=== PATIENT | female | born 1960 | race Caucasian/White ===

== ENCOUNTER → 2016-10-23 | Outpatient (CLI) | payer BC ==
[2016-10-23 14:06] VITALS: BP 145/78; PULSE 81; RESP 16; TEMP 98.4; BMI 29.5
--- NOTE | 2016-10-23 15:06 | P.HPBAR ---
Bariatric H&P - History & Physicial H&P Date: 10/23/16 History & Physicial: Visit/CC: band adj Patient initial contact: Initial weight: 80.314 kg Initial weight in pounds: 177.00 Height: 5 ft 5 in Initial BMI: 29.5 Last weight: Current weight: 80.314 kg Current weight in pounds: 177.00 Current BMI: 29.5 [place] body weight (based on NIH guidelines): 56.699 kg Excess body weight loss: 0.0% The patient is a 55 year-old F who presents for Bariatric Assessment. The patient is requesting a fill of her LAP-BAND. She currently feels hungry. Past Medical History Past Medical History: GERD/Reflux, Hypertension, Musculoskeletal Disorder Additional Past Medical History / Comment(s): MULTIPLE SCLEROSIS History of Any Multi-Drug Resistant Organisms: None Reported Past Surgical History: Section, Hysterectomy, Tonsillectomy Additional Past Surgical History / Comment(s): BILATERAL CARPAL TUNNEL SURGERY Past Anesthesia/Blood Transfusion Reactions: No Reported Reaction Past Psychological History: No Psychological Hx Reported Smoking Status: Never smoker Past Alcohol Use History: None Reported Past Drug Use History: None Reported Surgical - Exam Vital Signs Temp Pulse Resp BP 98.4 F 81 16 145/78 10/23/16 14:03 10/23/16 14:03 10/23/16 14:03 10/23/16 14:03 - General well developed, no distress - Eyes PERRL - ENT normal pinna - Neck no masses - Respiratory normal expansion - Cardiovascular Rhythm: regular - Abdomen Abdomen: soft, non tender Bariatric Assessment & Plan Plan: The patient LAP-BAND was adjusted. She had 1 mL added to her band. She currently has 4 mL in the LAP-BAND. She'll follow-up in one month for recheck. Bariatric Checklist Checklist: Plan: Checklist: EGD: 1. Hiatal hernia: 2. H. Pylori: HgbA1c: Vitamin D: Smoking: Never smoker Primary care physician referral: Psychiatry clearance: Cardiology clearance: Sleep study: Diet journal: VTE risk score: VTE risk level: Rehab needs at discharge:
== END | disposition home or self-care (01) ==
LOC: BARWHC3 13:14
PROVIDERS: ATTEND Surgery
DX: Z48.815 Encounter for surgical aftercare following surgery on the digestive system (principal); Z68.29 Body mass index [BMI] 29.0-29.9, adult; Z98.84 Bariatric surgery status
CPT/HCPCS: 99212

== ENCOUNTER → 2017-07-02 | Outpatient (CLI) | payer BC ==
--- NOTE | 2017-07-02 13:45 | FL ---
GASTRIC BANDING ESOPHAGRAM CLINICAL HISTORY: Pain Gastric banding esophagram was performed. The patient ingested thin liquid barium without difficulty or delay. Gastric band is noted to be in place. There is no evidence for leak or obstruction. No prolapse is identified. IMPRESSION: Normal-appearing gastric banding device without leak or obstruction.
[2017-07-02 13:53] VITALS: BP 137/73; PULSE 71; TEMP 97.9; BMI 30.9
--- NOTE | 2017-07-02 16:50 | P.HPBAR ---
Bariatric H&P - History & Physicial H&P Date: 07/02/17 History & Physicial: Visit/CC: lap band follow up Patient initial contact: Initial weight: 80.314 kg Initial weight in pounds: 177.06 Height: 5 ft 4 in Initial BMI: 30.4 Last weight: Current weight: 81.873 kg Current weight in pounds: 180.50 Current BMI: 30.9 [place] body weight (based on NIH guidelines): 54.431 kg Excess body weight loss: The patient is a 56 year-old F who presents for Bariatric Assessment. The patient has some complaints of GERD and dysphagia. Past Medical History Past Medical History: GERD/Reflux, Hypertension, Musculoskeletal Disorder Additional Past Medical History / Comment(s): MULTIPLE SCLEROSIS History of Any Multi-Drug Resistant Organisms: None Reported Past Surgical History: Section, Hysterectomy, Tonsillectomy Additional Past Surgical History / Comment(s): BILATERAL CARPAL TUNNEL SURGERY Past Anesthesia/Blood Transfusion Reactions: No Reported Reaction Past Psychological History: No Psychological Hx Reported Smoking Status: Never smoker Past Alcohol Use History: None Reported Past Drug Use History: None Reported Surgical - Exam Vital Signs Temp Pulse BP 97.9 F 71 137/73 07/02/17 13:47 07/02/17 13:47 07/02/17 13:47 - General well developed - Abdomen Abdomen: soft, non tender Bariatric Assessment & Plan Plan: Patient's lap band was adjusted. She had 4 mL remove her band. She will follow -up in 4 weeks. Bariatric Checklist Checklist: Plan: Checklist: EGD: 1. Hiatal hernia: 2. H. Pylori: HgbA1c: Vitamin D: Smoking: Never smoker Primary care physician referral: Psychiatry clearance: Cardiology clearance: Sleep study: Diet journal: VTE risk score: VTE risk level: Rehab needs at discharge:
== END | disposition home or self-care (01) ==
LOC: BARWHC3 12:20
PROVIDERS: ATTEND Surgery
DX: Z09 Encounter for follow-up examination after completed treatment for conditions other than malignant neoplasm (principal); K21.9 Gastro-esophageal reflux disease without esophagitis; I10 Essential (primary) hypertension; Z98.84 Bariatric surgery status
CPT/HCPCS: 74220; 99213

== ENCOUNTER → 2017-10-22 | Outpatient (CLI) | payer BC ==
--- NOTE | 2017-10-23 11:41 | P.HPBAR ---
Bariatric H&P - History & Physicial H&P Date: 10/22/17 History & Physicial: Visit/CC: Patient initial contact: Initial weight: 80.314 kg Initial weight in pounds: Height: Initial BMI: Last weight: Current weight: Current weight in pounds: Current BMI: [place] body weight (based on NIH guidelines): Excess body weight loss: The patient is a 56 year-old F who presents for Bariatric Assessment. Patient presents today for lab band follow up. She is requesting a fill of her band. Past Medical History Past Medical History: GERD/Reflux, Hypertension, Musculoskeletal Disorder Additional Past Medical History / Comment(s): MULTIPLE SCLEROSIS History of Any Multi-Drug Resistant Organisms: None Reported Past Surgical History: Section, Hysterectomy, Tonsillectomy Additional Past Surgical History / Comment(s): BILATERAL CARPAL TUNNEL SURGERY Past Anesthesia/Blood Transfusion Reactions: No Reported Reaction Past Psychological History: No Psychological Hx Reported Smoking Status: Never smoker Past Alcohol Use History: None Reported Past Drug Use History: None Reported Surgical - Exam - General well developed, no distress - Eyes PERRL - ENT normal pinna - Respiratory normal expansion - Cardiovascular Rhythm: regular - Abdomen Abdomen: soft, non tender Bariatric Assessment & Plan Plan: Patient's lap band was adjusted. 3 mL was added to her band. She will follow- up in one month. Bariatric Checklist Checklist: Plan: Checklist: EGD: 1. Hiatal hernia: 2. H. Pylori: HgbA1c: Vitamin D: Smoking: Never smoker Primary care physician referral: Psychiatry clearance: Cardiology clearance: Sleep study: Diet journal: VTE risk score: VTE risk level: Rehab needs at discharge:
[2017-10-24 11:32] VITALS: BP 125/62; PULSE 96; TEMP 98.2; BMI 32.5
== END | disposition home or self-care (01) ==
LOC: BARWHC3 13:23
PROVIDERS: ATTEND Surgery
DX: Z48.815 Encounter for surgical aftercare following surgery on the digestive system (principal); Z98.84 Bariatric surgery status
CPT/HCPCS: 99212

== ENCOUNTER → 2019-05-12 | Outpatient (CLI) | payer BC ==
[2019-05-12 13:22] VITALS: TEMP 98.2; BMI 37.2
[2019-05-12 13:51] VITALS: BP 100/88; PULSE 83
--- NOTE | 2019-05-23 12:36 | P.HPBAR ---
Bariatric H&P - History & Physicial H&P Date: 05/12/19 History & Physicial: Visit/CC: lap band fill Patient initial contact: Initial weight: 80.314 kg Initial weight in pounds: 177.06 Height: 5 ft 4 in Initial BMI: 30.4 Last weight: Current weight: 98.43 kg Current weight in pounds: 217.00 Current BMI: 37.2 [place] body weight (based on NIH guidelines): 54.431 kg Excess body weight loss: The patient is a 58 year-old F who presents for Bariatric Assessment. She's requesting a lap band fill. She currently feels hungry. Past Medical History Past Medical History: GERD/Reflux, Hypertension, Musculoskeletal Disorder Additional Past Medical History / Comment(s): MULTIPLE SCLEROSIS History of Any Multi-Drug Resistant Organisms: None Reported Past Surgical History: Bariatric Surgery, Section, Hysterectomy, Tonsillectomy Additional Past Surgical History / Comment(s): BILATERAL CARPAL TUNNEL SURGERY lap band surgery 2008 Past Anesthesia/Blood Transfusion Reactions: No Reported Reaction Smoking Status: Never smoker Surgical - Exam Vital Signs Temp Pulse BP 98.2 F 83 100/88 05/12/19 13:19 05/12/19 13:19 05/12/19 13:19 - General well developed, well nourished, no distress - Eyes PERRL - Abdomen Abdomen: soft, non tender Bariatric Assessment & Plan Plan: Patient's lap band was adjusted. She had 3 mL added to her band. She was ill drink water without difficulty. Bariatric Checklist Checklist: Plan: Checklist: EGD: 1. Hiatal hernia: 2. H. Pylori: HgbA1c: Vitamin D: Smoking: Never smoker Primary care physician referral: Psychiatry clearance: Cardiology clearance: Sleep study: Diet journal: VTE risk score: VTE risk level: Rehab needs at discharge:
== END ==
LOC: BARWHC3 12:46
PROVIDERS: ATTEND Surgery
DX: Z09 Encounter for follow-up examination after completed treatment for conditions other than malignant neoplasm (principal); Z98.84 Bariatric surgery status; E66.01 Morbid (severe) obesity due to excess calories; Z68.37 Body mass index [BMI] 37.0-37.9, adult
CPT/HCPCS: 99212

== ENCOUNTER → 2019-05-13 | Outpatient (CLI) | payer BC ==
[2019-05-13 10:41] VITALS: BP 110/65; PULSE 100; TEMP 98.1; BMI 35.5
--- NOTE | 2019-05-13 14:06 | P.HPBAR ---
Bariatric H&P - History & Physicial H&P Date: 05/13/19 History & Physicial: Visit/CC: lap band follow up Patient initial contact: Initial weight: 80.314 kg Initial weight in pounds: 177.06 Height: 5 ft 4 in Initial BMI: 30.4 Last weight: Current weight: 93.894 kg Current weight in pounds: 207.00 Current BMI: 35.5 [place] body weight (based on NIH guidelines): 54.431 kg Excess body weight loss: The patient is a 58 year-old F who presents for Bariatric Assessment. Dysphagia. Patient had a fill yesterday. Past Medical History Past Medical History: GERD/Reflux, Hypertension, Musculoskeletal Disorder Additional Past Medical History / Comment(s): MULTIPLE SCLEROSIS History of Any Multi-Drug Resistant Organisms: None Reported Past Surgical History: Bariatric Surgery, Section, Hysterectomy, Tonsillectomy Additional Past Surgical History / Comment(s): BILATERAL CARPAL TUNNEL SURGERY lap band surgery 2008 Past Anesthesia/Blood Transfusion Reactions: No Reported Reaction Past Psychological History: No Psychological Hx Reported Smoking Status: Never smoker Past Alcohol Use History: None Reported Past Drug Use History: None Reported Surgical - Exam Vital Signs Temp Pulse BP 98.1 F 100 110/65 05/13/19 10:38 05/13/19 10:38 05/13/19 10:38 - General well developed, well nourished, no distress - Abdomen Abdomen: soft, non tender Bariatric Assessment & Plan Plan: Patient's LAP-BAND was accessed. She had her band emptied. 60 mL was removed from her band. She is ill drink water without difficulty. She'll follow up in 1 month. Bariatric Checklist Checklist: Plan: Checklist: EGD: 1. Hiatal hernia: 2. H. Pylori: HgbA1c: Vitamin D: Smoking: Never smoker Primary care physician referral: Psychiatry clearance: Cardiology clearance: Sleep study: Diet journal: VTE risk score: VTE risk level: Rehab needs at discharge:
== END | disposition home or self-care (01) ==
LOC: BARWHC3 09:56
PROVIDERS: ATTEND Surgery
DX: Z46.51 Encounter for fitting and adjustment of gastric lap band (principal)
CPT/HCPCS: 99212

== ENCOUNTER → 2019-06-09 | Outpatient (CLI) | payer BC ==
[2019-06-09 13:06] VITALS: BP 141/80; PULSE 92; TEMP 98.1; BMI 37.2
--- NOTE | 2019-06-09 13:43 | P.HPBAR ---
Bariatric H&P - History & Physicial H&P Date: 06/09/19 History & Physicial: Visit/CC: lap band follow up Patient initial contact: Initial weight: 80.314 kg Initial weight in pounds: 177.06 Height: 5 ft 4 in Initial BMI: 30.4 Last weight: Current weight: 98.43 kg Current weight in pounds: 217.00 Current BMI: 37.2 [place] body weight (based on NIH guidelines): 54.431 kg Excess body weight loss: The patient is a 58 year-old F who presents for Bariatric Assessment. Patient resents today for her LAP-BAND adjustment. She currently is hungry and is requesting a fill. Past Medical History Past Medical History: GERD/Reflux, Hypertension, Musculoskeletal Disorder Additional Past Medical History / Comment(s): MULTIPLE SCLEROSIS History of Any Multi-Drug Resistant Organisms: None Reported Past Surgical History: Bariatric Surgery, Section, Hysterectomy, Tonsillectomy Additional Past Surgical History / Comment(s): BILATERAL CARPAL TUNNEL SURGERY lap band surgery 2009 Past Anesthesia/Blood Transfusion Reactions: No Reported Reaction Past Psychological History: No Psychological Hx Reported Smoking Status: Never smoker Past Alcohol Use History: None Reported Past Drug Use History: None Reported Surgical - Exam Vital Signs Temp Pulse BP 98.1 F 92 141/80 06/09/19 13:01 06/09/19 13:01 06/09/19 13:01 - General well developed, well nourished, no distress - Eyes PERRL - Abdomen Abdomen: soft, non tender Bariatric Assessment & Plan Plan: The patient's lap band was adjusted. She had 3 mL added to her band. She will follow-up in one month. Bariatric Checklist Checklist: Plan: Checklist: EGD: 1. Hiatal hernia: 2. H. Pylori: HgbA1c: Vitamin D: Smoking: Never smoker Primary care physician referral: Psychiatry clearance: Cardiology clearance: Sleep study: Diet journal: VTE risk score: VTE risk level: Rehab needs at discharge:
== END | disposition home or self-care (01) ==
LOC: BARWHC3 12:31
PROVIDERS: ATTEND Surgery
DX: Z46.51 Encounter for fitting and adjustment of gastric lap band (principal); Z98.84 Bariatric surgery status
CPT/HCPCS: 99212

== ENCOUNTER → 2019-07-14 | Outpatient (CLI) | payer BC ==
[2019-07-14 15:24] VITALS: BP 129/64; PULSE 106; TEMP 98.1; BMI 37.2
--- NOTE | 2019-07-14 17:51 | P.HPBAR ---
Bariatric H&P - History & Physicial H&P Date: 07/14/19 History & Physicial: Visit/CC: band fill Patient initial contact: Initial weight: 80.314 kg Initial weight in pounds: 177.06 Height: 5 ft 4 in Initial BMI: 30.4 Last weight: Current weight: 98.43 kg Current weight in pounds: 217.00 Current BMI: 37.2 [place] body weight (based on NIH guidelines): 54.431 kg Excess body weight loss: The patient is a 58 year-old F who presents for Bariatric Assessment. Patient is requesting a fill of her band. She currently feels hungry. Past Medical History Past Medical History: GERD/Reflux, Hypertension, Musculoskeletal Disorder Additional Past Medical History / Comment(s): MULTIPLE SCLEROSIS History of Any Multi-Drug Resistant Organisms: None Reported Past Surgical History: Bariatric Surgery, Section, Hysterectomy, Tonsillectomy Additional Past Surgical History / Comment(s): BILATERAL CARPAL TUNNEL SURGERY lap band surgery 2008 Past Anesthesia/Blood Transfusion Reactions: No Reported Reaction Past Psychological History: No Psychological Hx Reported Smoking Status: Never smoker Past Alcohol Use History: None Reported Past Drug Use History: None Reported Surgical - Exam Vital Signs Temp Pulse BP 98.1 F 106 H 129/64 07/14/19 13:30 07/14/19 13:30 07/14/19 13:30 - General well developed, well nourished, no distress - Eyes PERRL - Abdomen Abdomen: soft, non tender Bariatric Assessment & Plan Plan: Patient LAP-BAND was adjusted. She had 1 mL added to her band. She currently has 4 mL in the band. Bariatric Checklist Checklist: Plan: Checklist: EGD: 1. Hiatal hernia: 2. H. Pylori: HgbA1c: Vitamin D: Smoking: Never smoker Primary care physician referral: None currently Psychiatry clearance: Cardiology clearance: Sleep study: Diet journal: VTE risk score: VTE risk level: Rehab needs at discharge:
== END | disposition home or self-care (01) ==
LOC: BARWHC3 13:02
PROVIDERS: ATTEND Surgery
DX: Z46.51 Encounter for fitting and adjustment of gastric lap band (principal); Z98.84 Bariatric surgery status
CPT/HCPCS: 99212

== ENCOUNTER → 2019-08-11 | Outpatient (CLI) | payer BC ==
[2019-08-11 12:58] VITALS: BP 138/86; PULSE 86; TEMP 97.8; BMI 37.2
--- NOTE | 2019-09-15 15:32 | P.HPBAR ---
Bariatric H&P - History & Physicial H&P Date: 08/11/19 History & Physicial: Visit/CC: lap band follow up Patient initial contact: Initial weight: 80.314 kg Initial weight in pounds: 177.06 Height: 5 ft 4 in Initial BMI: 30.4 Last weight: Current weight: 98.43 kg Current weight in pounds: 217.00 Current BMI: 37.2 [place] body weight (based on NIH guidelines): 54.431 kg Excess body weight loss: The patient is a 58 year-old F who presents for Bariatric Assessment. Patient presents today for lab band follow up. She is requesting a fill of her band. Past Medical History Past Medical History: GERD/Reflux, Hypertension, Musculoskeletal Disorder Additional Past Medical History / Comment(s): MULTIPLE SCLEROSIS History of Any Multi-Drug Resistant Organisms: None Reported Past Surgical History: Bariatric Surgery, Section, Hysterectomy, Tonsillectomy Additional Past Surgical History / Comment(s): BILATERAL CARPAL TUNNEL SURGERY lap band surgery 2008 Past Anesthesia/Blood Transfusion Reactions: No Reported Reaction Smoking Status: Never smoker Surgical - Exam Vital Signs Temp Pulse BP 97.8 F 86 138/86 08/11/19 12:55 08/11/19 12:55 08/11/19 12:55 - General well developed, well nourished, no distress - Eyes PERRL - Abdomen Abdomen: soft, non tender Bariatric Assessment & Plan Plan: The patient LAP-BAND was just. She is 0.5 mL added to her band. She currently is 4.5 mL in the band. She was able to water without difficulty. She'll follow-up in 4 weeks. Bariatric Checklist Checklist: Plan: Checklist: EGD: 1. Hiatal hernia: 2. H. Pylori: HgbA1c: Vitamin D: Smoking: Never smoker Primary care physician referral: None currently Psychiatry clearance: Cardiology clearance: Sleep study: Diet journal: VTE risk score: VTE risk level: Rehab needs at discharge:
== END | disposition home or self-care (01) ==
LOC: BARWHC3 12:42
PROVIDERS: ATTEND Surgery
DX: Z46.51 Encounter for fitting and adjustment of gastric lap band (principal); Z98.84 Bariatric surgery status; Z90.710 Acquired absence of both cervix and uterus
CPT/HCPCS: 99212